=== PATIENT | male | born 1985 | race Hispanic/Latino ===

== ENCOUNTER 2017-06-05 12:50 | Outpatient (CLI) | payer BC ==
--- NOTE | 2017-06-06 08:57 | Magnetic Resonance Report ---
MR LOWER EXTREMITY JOINT LEFT WITHOUT CONTRAST HISTORY: Pain in right knee. TECHNIQUE: Multisequence, multiplanar MRI without IV gadolinium. COMPARISON: None at this facility. FINDINGS: There is severe, diffuse soft tissue swelling and edema. A large joint effusion is identified. No popliteal cyst. A transverse, mildly comminuted fracture is identified through the middle third of the patella with displacement measuring up to 2.0 cm on the coronal images. There is also an area of indistinct bone marrow edema in the posterior tibial plateau measuring 2.9 x 2.2 x 2.0 cm. This is at the insertion site of the PCL. There is suggestion of very subtle nondisplaced fracture lines in the posterior tibial plateau as well. This could represent a nondisplaced avulsion injury. Please correlate with the images. The PCL remains attached but appears slightly thickened with increased signal. A PCL sprain or partial tear could be considered. The ACL, MCL and LCL complex are intact and unremarkable. The menisci are within normal limits. No significant degeneration or tear. Intra-articular cartilage appears intact. IMPRESSION: Patellar fracture. See above. Indistinct bone marrow edema with suggestion of nondisplaced fracture lines in the posterior tibial plateau at the insertion site of the PCL. This may represent an avulsion injury. PCL strain or partial tear is suspected. Large joint effusion. Diffuse soft tissue swelling.
== END 2017-06-05 12:51 | disposition home or self-care (01) ==
LOC: MRI 12:50
PROVIDERS: ATTEND Orthopaedic Surgery
DX: S82.012A Displaced osteochondral fracture of left patella, initial encounter for closed fracture (principal); X58.XXXA Exposure to other specified factors, initial encounter; Y93.89 Activity, other specified; Y92.89 Other specified places as the place of occurrence of the external cause; Y99.8 Other external cause status
CPT/HCPCS: 73721

== ENCOUNTER 2017-06-06 06:17 | Observation (INO) | payer BC ==
[2017-06-05 14:51] LABS: Bilirubin,Urine NEG (Negative); Blood,Urine SM (Negative); Color,Urine Yellow (Yellow); Mucus,Urine 3+ /HPF; Protein,Urine <15 mg/dL mg/dL (Negative)
[2017-06-05 14:52] LABS: Basophils # (Auto) 0.1 K/mm3 (0.0-0.1); Basophils % (Auto) 0.9 % (0.0-1.8); Eosinophils # (Auto) 0.2 K/mm3 (0.0-0.4); Eosinophils % (Auto) 1.2 % (0.0-4.3); Hematocrit 41.5 % (35.5-45.6); Hemoglobin 13.9 gm/dl (11.8-15.2); Lymphocytes # (Auto) 3.8 K/mm3 (1.2-5.4); Lymphocytes % (Auto) 26.4 % (13.4-35.0); Mean Corpuscular HGB Conc 34 % (32-34); Mean Corpuscular Hemoglobin 31 pg (28-32); Mean Corpuscular Volume 94 fl (84-94); Monocytes # (Auto) 0.9 K/mm3 (0.0-0.8); Monocytes % (Auto) 6.5 % (0.0-7.3); Platelet Count 312 K/mm3 (140-440); Red Blood Count 4.43 M/mm3 (3.65-5.03); Red Cell Distribution Width 13.5 % (13.2-15.2)
[2017-06-05 15:11] LABS: BUN/Creatinine Ratio 19; Blood Urea Nitrogen 15 mg/dL (9-20); Calcium 9.2 mg/dL (8.4-10.2); Hemolysis Index 7
[2017-06-05 15:16] LABS: Benzodiazepines Screen,Urine PRESUMPTIVE NEGATIVE; Cannabinoid Screen,Urine PRESUMPTIVE NEGATIVE; Cocaine Screen,Urine PRESUMPTIVE NEGATIVE; Opiate Screen,Urine PRESUMPTIVE NEGATIVE
[2017-06-05 15:16] LABS: INR 0.87 (0.87-1.13)
[2017-06-05 15:17] LABS: Partial Thromboplastin Time 35.4 Sec. (24.2-36.6)
[2017-06-05 15:29] LABS: Amphetamine Screen,Urine PRESUMPTIVE POSITIVE; Methadone Screen,Urine PRESUMPTIVE POSITIVE
--- NOTE | 2017-06-05 15:38 | Anesthesia Consultation ---
Anesthesia Consult and Med Hx Date of service: 06/05/17 - Airway Anesthetic Teeth Evaluation: Chipped ROM Head & Neck: Adequate Mental/Hyoid Distance: Adequate Mallampati Class: Class I Intubation Access Assessment: Good - Pulmonary Exam CTA: Yes - Cardiac Exam Cardiac Exam: RRR - Pre-Operative Health Status ASA Pre-Surgery Classification: ASA2 Proposed Anesthetic Plan: General, MAC - Pulmonary Hx Smoking: Yes (1 PPD X 10 YRS) Hx Sleep Apnea: No (RICARDO PRE SCREEN LOW RISK.) - Cardiovascular System Hx Hypertension: No Hx Angina: No - Central Nervous System Hx Back Pain: Yes (DDD - was on [place] - converted to Methadone 30mg daily) - Gastrointestinal Hx Gastroesophageal Reflux Disease: No - Endocrine Hx Renal Disease: No Hx Liver Disease: No - Other Systems Hx Alcohol Use: Yes (6 every other weekend) Hx Substance Use: Yes (LORTAB ABUSE-ON METHADONE NOW) Hx Cancer: No Hx Obesity: No - Additional Comments Anesthesia Medical History Comments: Patient has concern about withdrawl. I have discussed the possibility of regional anesthesia.
[~2017-06-06 06:17] MED LIST: ANCEF/STERILE WATER 2 GM/20 ML IV NR; DECADRON IV SCH; MARCAINE 0.25% INFILTRATI ONE; MARCAINE 0.5% INFILTRATI NR; NACL 0.9% 1000 ML 1,000 ML IV SCH; NACL INFILTRATI ONE; NACL P/F VIAL (10 ML) INFILTRATI SCH; NEURONTIN PO NR; SUBLIMAZE IV SCH; TORADOL IV ONE; XYLOCAINE 1% 20 mL INFILTRATI NR; ZOFRAN IV NR
[2017-06-06] MEDS ORDERED: NACL BACTERIOSTATIC INFILTRATI ONE (06:40)
--- NOTE | 2017-06-06 07:16 | Anesthesia Day of Surgery ---
Anesthesia Day of Surgery - Day of Surgery Patient Examined: Yes Patient H&P Reviewed: Yes Patient is NPO: Yes
[2017-06-06] MEDS ORDERED: DECADRON ONE (07:21)
[2017-06-06] MEDS ORDERED: ZOFRAN ONE (07:21)
[2017-06-06] MEDS ORDERED: XYLOCAINE CARDIAC IV ONE (07:21)
[2017-06-06] MEDS ORDERED: VERSED ONE ×2 (07:22→07:48)
[2017-06-06] MEDS ORDERED: SUBLIMAZE ONE (07:22)
[2017-06-06] MEDS ORDERED: DIPRIVAN 10 MG/ML IV ONE (07:22)
[2017-06-06 07:26] LABS: Basophils # (Auto) 0.1 K/mm3 (0.0-0.1); Basophils % (Auto) 0.7 % (0.0-1.8); Eosinophils # (Auto) 0.1 K/mm3 (0.0-0.4); Eosinophils % (Auto) 1.3 % (0.0-4.3); Hematocrit 40.2 % (35.5-45.6); Hemoglobin 13.9 gm/dl (11.8-15.2); Lymphocytes # (Auto) 2.9 K/mm3 (1.2-5.4); Lymphocytes % (Auto) 32.1 % (13.4-35.0); Mean Corpuscular HGB Conc 35 % (32-34); Mean Corpuscular Hemoglobin 32 pg (28-32); Mean Corpuscular Volume 91 fl (84-94); Monocytes # (Auto) 0.8 K/mm3 (0.0-0.8); Monocytes % (Auto) 8.3 % (0.0-7.3); Platelet Count 236 K/mm3 (140-440); Red Blood Count 4.41 M/mm3 (3.65-5.03); Red Cell Distribution Width 13.5 % (13.2-15.2)
[2017-06-06] MEDS ORDERED: MARCAINE 0.5% 30 ML INFILTRATI ONE (07:39)
[2017-06-06] MEDS ORDERED: BACITRACIN ONE (07:48)
[2017-06-06] MEDS ORDERED: POLYMYXIN B SULFATE IV ONE ×2 (07:48→10:14)
[2017-06-06] MEDS ORDERED: TORADOL ONE ×2 (07:56→10:21)
[2017-06-06] MEDS ORDERED: NACL ONE (07:56)
[2017-06-06] MEDS ORDERED: MARCAINE 0.25% INFILTRATI ONE ×2 (07:57→10:34)
[2017-06-06] MEDS ORDERED: MORPHINE ONE (07:57)
[2017-06-06] MEDS ORDERED: CLORPACTIN WCS-90 IR ONE (07:58)
[2017-06-06] MEDS ORDERED: VERSED IV NR (08:00)
[2017-06-06] MEDS ORDERED: VANCOMYCIN VIAL ONE (08:47)
[2017-06-06] MEDS ORDERED: KETALAR ONE (08:48)
[2017-06-06] MEDS ORDERED: NACL 0.9% 250ML 250 ML ONE (08:50)
[2017-06-06] MEDS ORDERED: BACITRACIN IR ONE (10:14)
[2017-06-06] MEDS ORDERED: NACL INFILTRATI ONE (10:34)
[2017-06-06] MEDS ORDERED: TORADOL IV ONE (10:34)
[2017-06-06] MEDS ORDERED: PHENERGAN PR PRN (10:45)
[2017-06-06] MEDS ORDERED: ZOFRAN IV PRN (10:45)
[2017-06-06] MEDS ORDERED: DILAUDID ONE (10:47)
[2017-06-06] MEDS ORDERED: ROBINUL ONE (10:49)
[2017-06-06] MEDS ORDERED: NON-FORMULARY (Ranitidine Hcl [Zantac 150 Mg Tab] 150 MG) PO PRN (10:55)
[2017-06-06] MEDS ORDERED: ULTRAM PO PRN (10:55)
[2017-06-06] MEDS ORDERED: ANCEF/NS 1 GM/50 ML 1 GM/50 ML BAG IV SCH (11:00)
[2017-06-06] MEDS ORDERED: SODIUM CHLORIDE FLUSH SYRINGE 10 ML IV NR (11:00)
[2017-06-06] MEDS ORDERED: SODIUM CHLORIDE FLUSH SYRINGE 10 ML IV SCH (11:00)
[2017-06-06] MEDS ORDERED: BREVIBLOC IV ONE (11:12)
[2017-06-06] MEDS ORDERED: PEPCID PO PRN (11:40)
[2017-06-06] MEDS: NORCO 10/325 PO PRN ×3 (12:00→21:37)
[2017-06-06] MEDS: DILAUDID IV PRN ×3 (12:05→12:20)
[2017-06-06] MEDS: DOLOPHINE PO SCH (12:27)
--- NOTE | 2017-06-06 13:30 | Post Anesthesia Evaluation ---
- Post Anesthesia Evaluation Patient Participated: Yes Airway Patent: Yes Stable Respiratory Function: Yes Nausea/Vomiting: No Temp > 96.8F: Yes Pain Manageable: Yes Adequeate Hydration: Yes Anesthesia Complications: No Patient on Ventilator: No
[2017-06-06] MEDS ORDERED: ceFAZolin 2 GM in NACL 0.9% 100 ML IV SCH (14:00)
[2017-06-06] MEDS: ROBAXIN PO PRN (15:45)
[2017-06-06] MEDS: ceFAZolin 2 GM in NACL 0.9% 20 ML IV SCH (16:08)
[2017-06-06] MEDS ORDERED: COLACE PO SCH (22:00)
--- NOTE | 2017-06-06 23:52 | Consultation ---
History of Present Illness - Reason for Consult Consult date: 06/06/17 Medical management Requesting physician: JESSIE ALCALA - History of Present Illness S/p L patellar fracture after stepping accidentally into a hole.Had ORIF -post p doing well. 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) Past Surgical History: Other (Patella ORIF) Medications and Allergies Allergies Allergy/AdvReac Type Severity Reaction Status Date / Time morphine Allergy Vomiting , Verified 06/05/17 14:48 RASH Home Medications Medication Instructions Recorded Confirmed Last Taken Type Ibuprofen [Motrin] 800 mg PO Q8HR PRN 06/05/17 06/06/17 06/04/17 History Methadone [Dolophine] 30 mg PO DAILY 06/05/17 06/06/17 06/05/17 History Ranitidine HCl [Zantac 150 MG TAB] 150 mg PO PRN PRN 06/05/17 06/06/17 06/03/17 History methOCARBAMOL [Robaxin TAB] 500 mg PO Q6H PRN 06/05/17 06/06/17 06/04/17 History traMADol [Ultram] 50 mg PO Q6HR PRN 06/05/17 06/06/17 06/06/17 05:30 History Active Meds: Active Medications Acetaminophen/Hydrocodone Bitart ([place] 10/325) 1 each PO Q4H PRN PRN Reason: Pain, Moderate (4-6) Last Admin: 06/06/17 21:37 Dose: 1 each Docusate Sodium (Colace) 100 mg PO BID [facility] Last Admin: 06/06/17 21:37 Dose: 100 mg Enoxaparin Sodium (Lovenox) 40 mg SUB-Q QDAY@2200 [facility] Stop: 06/21/17 21:59 Famotidine (Pepcid) 20 mg PO QDAY PRN PRN Reason: INDIGESTION Hydromorphone HCl (Dilaudid) 0.25 mg IV Q10MIN PRN PRN Reason: Pain, Moderate (4-6) Last Admin: 06/06/17 12:20 Dose: 0.25 mg Sodium Chloride (Nacl 0.9% 1000 Ml) 1,000 mls @ 75 mls/hr IV DIRECT DIONNA Last Infusion: 02/15/18 23:40 Dose: Infused Cefazolin Sodium 2 gm/ Sodium (Chloride) 20 mls @ 20 mls/10 min IV Q8H DIONNA Stop: 06/07/17 01:09 Last Admin: 06/06/17 16:08 Dose: 20 mls/10 min Methadone HCl (Dolophine) 30 mg PO DAILY DIONNA Last Admin: 06/06/17 12:27 Dose: 30 mg Methocarbamol (Robaxin) 500 mg PO Q6H PRN PRN Reason: Pain Last Admin: 06/06/17 15:45 Dose: 500 mg Midazolam HCl (Versed) 2 mg IV PREOP NR Stop: 06/06/17 23:59 Last Admin: 06/06/17 07:45 Dose: 2 mg Ondansetron HCl (Zofran) 4 mg IV Q8H PRN PRN Reason: Nausea And Vomiting Last Admin: 06/06/17 21:39 Dose: 4 mg Promethazine HCl (Phenergan) 25 mg DE Q6H PRN PRN Reason: Nausea And Vomiting Sodium Chloride (Nacl P/F Vial (10 Ml)) 1 ml INFILTRATI PREOP DIONNA Sodium Chloride (Sodium Chloride Flush Syringe 10 Ml) 10 ml IV PRN NR Stop: 06/06/17 23:59 Sodium Chloride (Sodium Chloride Flush Syringe 10 Ml) 10 ml IV PRN DIONNA Tramadol HCl (Ultram) 50 mg PO Q6HR PRN PRN Reason: Pain Review of Systems All systems: negative Exam - Constitutional Vitals: Temp Pulse Resp BP Pulse Ox 98.2 F 98 H 20 108/62 97 06/06/17 19:50 06/06/17 19:50 06/06/17 19:55 06/06/17 19:50 06/06/17 19:50 General appearance: Present: no acute distress, well-nourished - EENT Eyes: Present: PERRL ENT: hearing intact, clear oral mucosa - Neck Neck: Present: supple, normal ROM - Respiratory Respiratory effort: normal Respiratory: bilateral: CTA - Cardiovascular Heart Sounds: Present: S1 & S2. Absent: rub, click - Extremities Extremities: pulses symmetrical, No edema Peripheral Pulses: within normal limits - Abdominal General gastrointestinal: Present: soft, non-tender, non-distended, normal bowel sounds Male genitourinary: Present: normal - Integumentary Integumentary: Present: clear, warm, dry - Musculoskeletal Musculoskeletal: gait normal, strength equal bilaterally - Psychiatric Psychiatric: appropriate mood/affect, intact judgment & insight - Neurologic Neurologic: CNII-XII intact, moves all extremities Results - Labs CBC & Chem 7: 06/06/17 07:00 06/05/17 14:30 Labs: Abnormal lab results 06/06/17 Range/Units 07:00 MCHC 35 H (32-34) % [place] % (Auto) 8.3 H (0.0-7.3) % Assessment and Plan - Patient Problems (1) Left patella fracture Current Visit: Yes Status: Acute Qualifiers: Encounter type: initial encounter Fracture type: closed Fracture morphology: unspecified fracture morphology Plan to address problem: S/p ORIF.Postop doing well (2) Hydrocodone use disorder, mild, in sustained remission, in controlled environment, abuse Current Visit: Yes Status: Chronic Plan to address problem: On Methadone CIWA protocol if necessary (3) DVT prophylaxis Current Visit: Yes Status: Acute Plan to address problem: on Lovenox 30
--- NOTE | 2017-06-06 23:59 | XRay Report ---
FINAL REPORT EXAM: XR KNEE 1-2V LT HISTORY: ORIF LT PATELLOR FRACTURE TECHNIQUE: AP and lateral views of the left knee were submitted. There are no previous studies available for comparison. FINDINGS: The patient is status post ORIF for patellar fracture with pins and cerclage wires in place. The fracture fragments are properly Ree align without residual displacement. The soft tissues are unremarkable. IMPRESSION: Status post ORIF for patellar fracture. Satisfactory postoperative alignment.
[2017-06-07] MEDS: NORCO 10/325 PO PRN ×2 (03:03→10:03)
[2017-06-07] MEDS: ceFAZolin 2 GM in NACL 0.9% 20 ML IV SCH (03:05)
[2017-06-07] MEDS: DOLOPHINE PO SCH (10:02)
[2017-06-07] MEDS: ROBAXIN PO PRN (10:28)
--- NOTE | 2017-06-07 11:14 | Progress Note ---
Subjective Date of service: 06/07/17 Interval history: pod1, patient having mod to severe pain, dressing was removed, sven wrap removed. caslf soft NT dRESSING DRY Thigh soft. Resolving bruise around the knee from preop time, no redness, no wound drainage Sven wrap loosely reapplied and knee immobiliser applied. Ice pacs recommended, leg elevation, pain management consult - Anaesthesia and Medicine consult Given his history of opiod abuse and being on methadone, he has poor pain tolerance and may be neeeding higher and stronger pain meds for pain control Patient aware of the possibility of chroni pain , RSD. Ankle movts encouranged. lyrica added. Follow Pain management/ anaesthesisa AND MEDICINE RECOMMENDATIONS. Patient to be kept in hopsital for pain control. Objective Vital signs: Vital Signs - 12hr 06/07/17 06/07/17 06/07/17 00:25 00:26 04:42 Temperature 97.8 F 97.8 F Pulse Rate 74 71 64 Respiratory 17 18 Rate Blood Pressure 109/54 109/54 105/61 O2 Sat by Pulse 97 97 97 Oximetry 06/07/17 06/07/17 07:41 09:41 Temperature 98.4 F Pulse Rate 67 Respiratory 18 Rate Blood Pressure 122/71 O2 Sat by Pulse 100 95 Oximetry - Labs CBC & BMP: 06/06/17 07:00 06/05/17 14:30
[2017-06-07] MEDS ORDERED: ROXICODONE PO PRN (13:31)
--- NOTE | 2017-06-07 13:44 | Progress Note ---
Assessment and Plan Patient seen and evaluated at bedside. He is complaining of uncontrolled pain. score 10/10. "feels like his leg is on fire". He said the nerve block performed yesterday helped his pain but now the block has faded. He is on methadone and has history of lortab abuse. I offered to repeat the nerve block. He refused. I offer to start some adjuvants such as toradol. he said that wont help. he requested I give him IV pain medication.diluadid or morphine He said if not given IV opioids, he will sign out and take "as much pain medication at home as I need". I advised him to take meds only as scheduled. I stressed about the concern for overdose and respiratory depression. Spoke with Dr. Whitmore. Spoke with nurse Simons at [facility]( his methadone clinic). Ronak advised to d/c tramdol( ordered by Dr. Whitmore) as there is risk for withdrawal. Current meds: Methadone 40 mg daily Robaxin 500 mg po q6hr prn Lyrica 75 mg bid Toradol 30 mg IV q8hr- 3 doses po Tylenol 650 mg q8hr po oxycodne 5 mg q4hr prn Objective - Constitutional Vitals: Vital Signs - 12hr 06/07/17 06/07/17 06/07/17 04:42 07:41 09:41 Temperature 97.8 F 98.4 F Pulse Rate 64 67 Respiratory 18 18 Rate Blood Pressure 105/61 122/71 O2 Sat by Pulse 97 100 95 Oximetry - Labs CBC & Chem 7: 06/06/17 07:00 06/05/17 14:30
[2017-06-07] MEDS: TORADOL IV SCH ×2 (14:28→14:50)
[2017-06-07] MEDS ORDERED: TYLENOL PO SCH (14:30)
[2017-06-07 15:56] VITALS: BP 120/73
--- NOTE | 2017-06-07 17:53 | Discharge Summary ---
Providers - Providers Date of Admission: 06/06/17 10:45 Date of discharge: 06/07/17 Attending physician: JESSIE ALCALA 06/06/17 10:45 Consult to Case Management [CONS] Routine Services Needed at Discharge: Home Health Services Political Worker DME Equipment Physical Therapy Notified:: LAYOUT INSPECTOR Additional Physician Instructions: patient will be NWB with crutches and knee immobilizer at all times. Consult to Physician [CONS] Routine Consulting Provider: SCOTTY FISHER Reason For Exam: postop Place consult to:: DR. FISHER Notified:: DR. FISHER Phone number called:: [phone] Was contact made?: Yes If yes, spoke with:: DR. FISHER Time called:: 16:42 Comment:: COMPLETED 06/06/17 10:53 Physical Therapy Evaluation and Treat [CONS] Routine Comment: Reason For Exam: postop patella fracture 06/06/17 10:56 Consult to Anesthesiology [CONS] Routine Consulting Provider: [facility] Reason For Exam: postop pain management Primary care physician: ANGELIA FULLER Hospitalization Hospital course: S/p L patellar Fx ORIF Doing well. Disposition: - TO HOME OR SELFCARE - Discharge Diagnoses (1) Left patella fracture Status: Acute Qualifiers: Encounter type: initial encounter Fracture type: closed Fracture morphology: unspecified fracture morphology (2) Hydrocodone use disorder, mild, in sustained remission, in controlled environment, abuse Status: Chronic (3) DVT prophylaxis Status: Acute Core Measure Documentation - Palliative Care Palliative Care/ Comfort Measures: Not Applicable - Core Measures Any of the following diagnoses?: none Exam - Constitutional Vitals: Temp Pulse Resp BP Pulse Ox 98.3 F 82 18 120/73 95 06/07/17 15:40 06/07/17 15:40 06/07/17 15:40 06/07/17 15:40 06/07/17 15:40 General appearance: Present: no acute distress, well-nourished - EENT Eyes: Present: PERRL ENT: hearing intact, clear oral mucosa - Neck Neck: Present: supple, normal ROM - Respiratory Respiratory effort: normal Respiratory: bilateral: CTA - Cardiovascular Heart rate: 80 Rhythm: regular Heart Sounds: Present: S1 & S2. Absent: rub, click - Extremities Extremities: pulses symmetrical, No edema Peripheral Pulses: within normal limits - Abdominal General gastrointestinal: Present: soft, non-tender, non-distended, normal bowel sounds Male genitourinary: Present: normal - Integumentary Integumentary: Present: clear, warm, dry - Musculoskeletal Musculoskeletal: gait normal, strength equal bilaterally - Psychiatric Psychiatric: appropriate mood/affect, intact judgment & insight - Neurologic Neurologic: CNII-XII intact, moves all extremities - Allied Health Allied health notes reviewed: nursing, case management Plan Activity: no restrictions Diet: regular Follow up with: ANGELIA FULLER MD [Primary Care Provider] - 7 Days
[2017-06-07] MEDS ORDERED: LYRICA PO SCH (22:00)
[2017-06-07] MEDS ORDERED: LOVENOX SUB-Q SCH (22:00)
--- NOTE | 2017-06-19 22:44 | Operative Report ---
PREOPERATIVE DIAGNOSIS: Fracture of the patella closed in the left knee with minimal comminution. POSTOPERATIVE DIAGNOSES: 1. Displaced fracture of patella, left knee, with minimal comminution. 2. Hematoma, left knee joint. SURGEON: Otto Whitmore M.D. AUDIT PRACTICE INTERN: Zaki Sierra, operative tech. BRIEF HISTORY: The patient presented in the office with a painful swollen knee. He was seen by the Emergency Room doctor and was referred to one of the doctors and the surgeon who, as per the patient, did not do his surgery. He was seen by me and he had displaced patella fracture, which needed surgical intervention. Risks and benefits discussed, informed consent obtained. He was here, brought to the hospital for the procedure below. PROCEDURES PERFORMED: Left knee open reduction and internal fixation left patella fracture with tension band wiring technique. COMPLICATIONS: None. BLOOD LOSS: Minimal. DETAILS OF THE OPERATIVE REPORT: The patient was taken to the operating room. After smooth general endotracheal anesthesia, all the bony prominences were carefully padded, placed supine on the operating table. Thigh tourniquet placed. Left lower extremity prepped and draped in sterile fashion. The patient had a bruise significant around the knee area, in the lower thigh and upper leg area. Leg elevated, tourniquet inflated to 300 mmHg. Longitudinal incision made over anterior aspect of the knee, exposing the extensor mechanism. Significant hematoma was encountered and was suctioned out. There was a hematoma, which has been present for a long time, probably more than 7-10 days as per his history. He has small fracture, identified. Hematoma was evacuated. Fracture site was cleared of all the hematoma and the periosteum, which was coming over the fracture site. There was a tear of the retinacular tissue in the medial lateral side, complete tear which was identified as well. Two K wires were placed that ____ the fracture after the fracture site was reduced. Fractures were reduced with the patella reduction clamp and larger Mtz clamp. Once the fracture reduced, a K-wire was passed through the fracture site. The reduction was checked under C-arm, found to be excellent and we had smooth transition on the articular side by palpating, putting a finger through the retinacular tissue, which was torn. Once this was done, we checked the placement of the wire. The placement of wires was about 5 mm below the anterior surface of the patella. The cerclage wires were then placed ____ through an Angiocath. A 16 gauge Angiocath through the quadriceps mechanism close to the superior surface of the patella and inferior pole of the patella underneath the K wires. We advanced a cerclage wire and looped the cerclage wire around over the patella, crisscross the wires in a [id number] fashion and then tensioning was performed using 2 looped tensioning technique. A securing of the cerclage wire was done, free ends were cut and bend and buried. The K-wires were trimmed, rotated and buried into the soft bone over the wires. The lower end of the wires was mildly bend to prevent its proximal migration. Once this was done and we had satisfactory reduction, the thorough washing was performed. The retinacular tissues were repaired with Ethibond and Vicryl sutures using [id number] technique. The subcutaneous tissue was closed with 0 Vicryl and 2-0 Vicryl interrupted sutures. Skin was closed with Monocryl. Aquacel dressing done. Sven wrap applied. Knee immobilizer applied. The patient tolerated the procedure well, shifted to recovery room in stable condition. Sponge and needle count was correct. JOB# [id number] DAVID/MILTON
== END 2017-06-07 20:00 | disposition home or self-care (01) ==
LOC: OR 06:17 → 3B-SURG 10:45
PROVIDERS: ADMIT Orthopaedic Surgery; ATTEND Orthopaedic Surgery
DX: S82.042A Displaced comminuted fracture of left patella, initial encounter for closed fracture (principal); F11.11 Opioid abuse, in remission; M51.36 Other intervertebral disc degeneration, lumbar region; W22.8XXA Striking against or struck by other objects, initial encounter; Y93.89 Activity, other specified; Y92.89 Other specified places as the place of occurrence of the external cause; Y99.8 Other external cause status; Z87.891 Personal history of nicotine dependence
CPT/HCPCS: 27524; 36415; 64450; 73560; 80048; 80307; 81001; 85025; 85610; 85730; 86850; 86900; 86901; 93005; 93010; 96374; 96375; 96376; 97161; G0378; J0690; J1100; J1170; J1885; J2001; J2250; J2405; J2704; J3010; J3370; J7030; J7050; J2270

== ENCOUNTER 2017-09-26 06:39 | Observation (INO) | payer BC ==
[2017-09-25 11:35] LABS: Basophils # (Auto) 0.1 K/mm3 (0.0-0.1); Eosinophils # (Auto) 0.1 K/mm3 (0.0-0.4); Eosinophils % (Auto) 1.6 % (0.0-4.3); Hematocrit 43.5 % (35.5-45.6); Lymphocytes # (Auto) 2.6 K/mm3 (1.2-5.4); Lymphocytes % (Auto) 34.1 % (13.4-35.0); Mean Corpuscular HGB Conc 35 % (32-34); Mean Corpuscular Hemoglobin 32 pg (28-32); Mean Corpuscular Volume 92 fl (84-94); Monocytes # (Auto) 0.5 K/mm3 (0.0-0.8); Monocytes % (Auto) 6.6 % (0.0-7.3); Platelet Count 269 K/mm3 (140-440); Red Blood Count 4.75 M/mm3 (3.65-5.03); Red Cell Distribution Width 13.7 % (13.2-15.2)
[2017-09-25 11:37] LABS: Bilirubin,Urine NEG (Negative); Blood,Urine SM (Negative); Color,Urine Yellow (Yellow); Protein,Urine <15 mg/dL mg/dL (Negative)
[2017-09-25 11:38] LABS: Mucus,Urine FEW /HPF; Urobilinogen,Urine < 2.0 mg/dL (<2.0)
[2017-09-25 11:47] LABS: INR 0.87 (0.87-1.13)
[2017-09-25 12:00] LABS: Alanine Aminotransferase 22 units/L (7-56); Albumin 4.1 g/dL (3.9-5); BUN/Creatinine Ratio 16; Blood Urea Nitrogen 11 mg/dL (9-20); Calcium 9.1 mg/dL (8.4-10.2); Hemolysis Index 14
[2017-09-25 12:43] LABS: Amphetamine Screen,Urine PRESUMPTIVE NEGATIVE; Benzodiazepines Screen,Urine PRESUMPTIVE NEGATIVE; Cannabinoid Screen,Urine PRESUMPTIVE NEGATIVE; Cocaine Screen,Urine PRESUMPTIVE NEGATIVE
--- NOTE | 2017-09-25 12:47 | Anesthesia Consultation ---
Anesthesia Consult and Med Hx Date of service: 09/25/17 - Airway Anesthetic Teeth Evaluation: Poor ROM Head & Neck: Adequate Mental/Hyoid Distance: Adequate Mallampati Class: Class I Intubation Access Assessment: Good - Pulmonary Exam CTA: Yes - Cardiac Exam Cardiac Exam: RRR - Pre-Operative Health Status ASA Pre-Surgery Classification: ASA3 Proposed Anesthetic Plan: General Nerve Block: Femoral (Will use precedex, and Ketamine, intraop, pt has hx of drug abuse, on methadone) - Pulmonary Hx Smoking: Yes (1 PPD X 10 YRS) Hx Pneumonia: No Hx Sleep Apnea: No (RICARDO PRE SCREEN LOW RISK) - Cardiovascular System Hx Hypertension: No - Central Nervous System Hx Back Pain: Yes (CHRONIC- DAILY PAIN MEDS) - Other Systems Hx Alcohol Use: Yes Hx Substance Use: Yes (ADDICTION TO LORTABS-CONVERTED TO METHADONE) Hx Cancer: No
[2017-09-25 13:02] LABS: Methadone Screen,Urine PRESUMPTIVE POSITIVE; Opiate Screen,Urine PRESUMPTIVE POSITIVE
[~2017-09-26 06:39] MED LIST changes: -DECADRON IV SCH; -MARCAINE 0.5% INFILTRATI NR; -NACL 0.9% 1000 ML 1,000 ML IV SCH; -NACL INFILTRATI ONE; -NACL P/F VIAL (10 ML) INFILTRATI SCH; -NEURONTIN PO NR; -SUBLIMAZE IV SCH; -TORADOL IV ONE; +VERSED IV NR; -XYLOCAINE 1% 20 mL INFILTRATI NR; -ZOFRAN IV NR
[2017-09-26] MEDS: LACTATED RINGERS 1,000 ML IV SCH ×3 (07:15→21:42)
[2017-09-26] MEDS ORDERED: SUBLIMAZE ONE (07:45)
[2017-09-26] MEDS ORDERED: DIPRIVAN 10 MG/ML IV ONE ×2 (07:45→09:13)
[2017-09-26] MEDS ORDERED: NACL 0.9% 100 ML ONE ×2 (07:50→08:10)
[2017-09-26] MEDS ORDERED: DEXMEDETOMIDINE IV ONE (07:51)
[2017-09-26] MEDS ORDERED: DECADRON ONE (07:53)
[2017-09-26] MEDS ORDERED: MARCAINE 0.5% 30 ML INFILTRATI ONE (07:53)
[2017-09-26] MEDS ORDERED: CLONIDINE 1,000 MCG/10 ML VIAL EP ONE (07:53)
[2017-09-26] MEDS ORDERED: KETALAR ONE ×3 (07:59→12:48)
[2017-09-26] MEDS ORDERED: TORADOL ONE ×2 (08:09→12:46)
[2017-09-26] MEDS ORDERED: POLYMYXIN B SULFATE IV ONE ×2 (08:10→09:22)
[2017-09-26] MEDS ORDERED: BACITRACIN ONE (08:10)
[2017-09-26] MEDS ORDERED: MARCAINE 0.25% INFILTRATI ONE ×2 (08:10→10:53)
[2017-09-26] MEDS ORDERED: ZOFRAN ONE (08:30)
[2017-09-26] MEDS ORDERED: NEO SYNEPHRINE/NS Syringe(OR USE) IV ONE (08:38)
[2017-09-26] MEDS ORDERED: ePHEDrine 50 MG/5 ML-0.9% NACL IV ONE (08:38)
[2017-09-26] MEDS ORDERED: BACITRACIN IR ONE (09:22)
[2017-09-26] MEDS ORDERED: CLORPACTIN WCS-90 IR ONE (09:49)
[2017-09-26] MEDS ORDERED: [UNRECOGNIZED DRUG - OTHER] IRRIGATION ONE (10:27)
[2017-09-26] MEDS ORDERED: DILAUDID ONE ×2 (10:30→11:11)
[2017-09-26] MEDS ORDERED: MILK OF MAGNESIA PO PRN (10:54)
[2017-09-26] MEDS ORDERED: ZOFRAN IV PRN ×2 (10:54→12:19)
[2017-09-26] MEDS ORDERED: PHENERGAN PR PRN (10:54)
[2017-09-26] MEDS ORDERED: ACETAMINOPHEN PO PRN (10:58)
[2017-09-26] MEDS ORDERED: OXYCODONE HCL PO PRN (10:58)
[2017-09-26] MEDS ORDERED: NON-FORMULARY (Ranitidine Hcl [Zantac 150 Mg Tab] 150 MG) PO PRN (10:58)
[2017-09-26] MEDS ORDERED: SODIUM CHLORIDE FLUSH SYRINGE 10 ML IV NR (11:00)
[2017-09-26] MEDS ORDERED: NORCO 10/325 PO PRN (11:02)
--- NOTE | 2017-09-26 11:45 | Operative Report ---
PREOPERATIVE DIAGNOSIS: Displaced fracture, left patella with hardware in situ POSTOPERATIVE DIAGNOSIS: Displaced fracture, left patella with hardware in situ PROCEDURES PERFORMED: 1. Open reduction and internal fixation of left patella fracture with cannulated cancellous screws x 2 with tension band wire. 2. Repair of the retinacular tissue. 3. Removal of the hardware K wires and previous wires in situ. COMPLICATIONS: None. BLOOD LOSS: Minimal. SURGEON: Otto Whitmore MD. CLERK TRAVEL RESERVATIONS: Zaki Sierra CSA. BRIEF HISTORY: The patient had a patella fracture in the past, open reduction and internal fixation was fixed with tension band wiring and is being 3-1/2-month-old and had slipped down on the downhill and injured his left lower extremity again and came back with a displaced refracture of the patella. He opted for surgical intervention. Risks, benefit discussed, informed consent obtained, brought to the hospital for the above procedure. DETAILS OF THE OPERATIVE REPORT: The patient was taken to the operating room. Smooth general anesthesia, all the bony prominences were carefully padded, placed supine on the operating table. Thigh tourniquet was placed. Left knee and left lower extremity prepped and draped in sterile fashion. The patient was given 2 gram Ancef half an hour before the procedure. Midline incision was made in the same line, same incision was used. Previous scar was used and extended 1 cm proximally and distally to find a good tissue plane. Fracture site was exposed. There was significant amount of hematoma was encountered and it was evacuated. There was some tear and rupture of the Ethibond sutures and retinacular tissues again and sutures were removed. The fracture was ; however, the wires were still in place and holding the two bone fragment. There was separation of the bone fragment. There were two big pieces of superior and inferior patella. The wires and the hardware were removed. The fracture site exposed, cleaned and then soft tissues on the edges of the fracture site were cleaned again. The retinacular tissues were exposed to see the extent of the tear. The fracture was then reduced with pointed reduction clamp on medial lateral side or reduction was checked on the C-arm, found to be acceptable. We then passed a guidewire from inferior to superior holding the fracture site. It was checked and the bone stock was enough to put 2 cannulated screw. We measured the size of the screw and inserted a cannulated cancellous screw 4-0, two screws holding the tube fracture pieces together. The length of screw on the medial side was 38 and the lateral side was 40 mm. A good fixation was achieved. Good compression of the fracture site was achieved. The screw did not protrude through the superior surface, which very well fixed and abutting the bone. The fracture site was reduced and confirmed and placement of the screw was confirmed to be very well acceptable on the AP and lateral view of the knee. Following this, the #20 stem cerclage wire was passed through the screw bringing it over the patella passing through the other screw and tying a loop and not over the patella, good fixation tension band technique was done and good loop was tightened up and good tension band technique was performed. Good fixation was achieved. The fracture was compressed and very well approximated. The retinacular tissue, which torn was again repaired with Ethibond sutures and 0 Vicryl sutures. Subcutaneous tissue was closed with 0 and 2-0 Vicryl interrupted sutures and the patient had some soft tissue defect on anterior aspect of the knee in order for better wound approximation couple of 2-3 nylon stitches in horizontal mattress were done in the skin and subcutaneous tissue for better wound approximation and wound was then closed with 0 and 3-0 Monocryl suture. Tourniquet was deflated during the after the procedure and before the wound closure. The dressing was done with Aquacel dressing and Sven wrap applied and knee immobilizer applied. The patient tolerated procedure well, shifted to recovery room in stable condition. Sponge and needle count was correct. JOB# [id number] DAVID/MILTON
[2017-09-26] MEDS: TORADOL IV SCH ×3 (11:55→23:22)
[2017-09-26] MEDS ORDERED: DILAUDID IV PRN (12:19)
--- NOTE | 2017-09-26 12:19 | Anesthesia Day of Surgery ---
Anesthesia Day of Surgery - Day of Surgery Patient Examined: Yes Patient H&P Reviewed: Yes Patient is NPO: Yes
[2017-09-26] MEDS: DOLOPHINE PO SCH (12:30)
[2017-09-26] MEDS: DILAUDID IV PRN ×3 (12:30→20:40)
[2017-09-26] MEDS ORDERED: PEPCID PO PRN (12:31)
[2017-09-26] MEDS ORDERED: VERSED ONE ×2 (12:48)
[2017-09-26] MEDS ORDERED: ceFAZolin 2 GM in NACL 0.9% 100 ML IV SCH (14:00)
--- NOTE | 2017-09-26 16:34 | XRay Report ---
XRAY LEFT KNEE 2 VIEWS: 09/26/17 06:39:00 CLINICAL: Patellar hardware removal and replacement. COMPARISON: 09/03/17 FINDINGS: Fixation wires in the patella have been replaced with 2 screws and wires. IMPRESSION: Status post patellar ORIF.
[2017-09-26] MEDS: ANCEF/STERILE WATER 2 GM/20 ML 2 GM/20 ML SYRINGE IV SCH (17:04)
[2017-09-26] MEDS: ASPIRIN PO SCH (21:42)
[2017-09-27] MEDS: ANCEF/STERILE WATER 2 GM/20 ML 2 GM/20 ML SYRINGE IV SCH ×2 (02:48→12:06)
[2017-09-27] MEDS: TORADOL IV SCH (05:56)
[2017-09-27] MEDS: DILAUDID IV PRN ×3 (07:51→18:03)
[2017-09-27] MEDS: DOLOPHINE PO SCH (09:21)
[2017-09-27] MEDS: ASPIRIN PO SCH (09:21)
--- NOTE | 2017-09-27 11:54 | Consultation ---
History of Present Illness - Reason for Consult Consult date: 09/27/17 Medical management - History of Present Illness Patient had surgery left patella. hospitalist consulted for medical management. Past History Past Medical History: other (Opiod dependence, onMrthadone) Past Surgical History: Other (left knee surgery) Social history: , lives with family, smoking (Smokes one and half pack cigarettes daily), alcohol abuse (6 beers on weekends) Family history: hypertension Medications and Allergies Allergies Allergy/AdvReac Type Severity Reaction Status Date / Time morphine Allergy Vomiting , Verified 06/05/17 14:48 RASH tramadol AdvReac NARCOTIC Verified 09/25/17 17:27 WITHDRAWAL Home Medications Medication Instructions Recorded Confirmed Last Taken Type Ibuprofen [Motrin] 800 mg PO Q8HR PRN 06/05/17 09/26/17 09/22/17 History Methadone [Dolophine] 30 mg PO DAILY 06/05/17 09/26/17 09/25/17 History Ranitidine HCl [Zantac 150 MG TAB] 150 mg PO PRN PRN 06/05/17 09/26/17 09/24/17 History HYDROcodone/APAP 5-325 [[place] 1 each PO Q6HR PRN 09/25/17 09/26/17 09/26/17 05: 00 History 5/325] Oxycodone HCl/Acetaminophen 1 each PO PRN PRN 09/25/17 09/26/17 4 Days Ago History [Endocet 7.5-325 mg Tablet] ~09/22/17 Active Meds: Active Medications Acetaminophen/Hydrocodone Bitart ([place] 10/325) 1 each PO Q4H PRN PRN Reason: Pain, Moderate (4-6) Aspirin (Aspirin) 325 mg PO BID [facility] Last Admin: 09/27/17 09:21 Dose: 325 mg Famotidine (Pepcid) 20 mg PO BID PRN PRN Reason: Indigestion Hydromorphone HCl (Dilaudid) 1 mg IV Q2H PRN PRN Reason: Pain , Severe (7-10) Last Admin: 09/27/17 11:19 Dose: 1 mg Lactated Ringer's (Lactated Ringers) 1,000 mls @ 100 mls/hr IV DIRECT [facility] Last Admin: 09/26/17 21:42 Dose: 100 mls/hr Magnesium Hydroxide (Milk Of Magnesia) 30 ml PO Q4H PRN PRN Reason: Constipation Methadone HCl (Dolophine) 30 mg PO DAILY [facility] Last Admin: 09/27/17 09:21 Dose: 30 mg Ondansetron HCl (Zofran) 4 mg IV Q8H PRN PRN Reason: Nausea And Vomiting Ondansetron HCl (Zofran) 4 mg IV ONCE PRN PRN Reason: Nausea And Vomiting Promethazine HCl (Phenergan) 25 mg [place] Q6H PRN PRN Reason: Nausea And Vomiting Exam - Constitutional Vitals: Temp Pulse Resp BP Pulse Ox 98.7 F 58 L 18 121/78 99 09/27/17 07:28 09/27/17 07:30 09/27/17 07:28 09/27/17 07:28 09/27/17 07:30 Results - Labs CBC & Chem 7: 09/25/17 11:00 09/25/17 11:00 Assessment and Plan Left knee surgery. Orthopedic surgeon managing Opioid dependence. On methadone. Continue meds
[2017-09-27] MEDS: LACTATED RINGERS 1,000 ML IV SCH (13:37)
--- NOTE | 2017-09-27 16:35 | Progress Note ---
Subjective Date of service: 09/27/17 Interval history: pod1, s/p orif patella, patient dressing dry, no complaints pain under control avss, nvi ankle movts and senstaiopns present knee immobiliser in place patient elecets to go home m, Objective Vital signs: Vital Signs - 12hr 09/27/17 09/27/17 09/27/17 07:28 07:30 11:46 Temperature 98.7 F 98.3 F Pulse Rate 58 L 77 Respiratory 18 18 Rate Blood Pressure 121/78 115/75 O2 Sat by Pulse 99 95 Oximetry - Labs CBC & BMP: 09/25/17 11:00 09/25/17 11:00
--- NOTE | 2017-09-27 16:38 | Short Stay Summary ---
Short Stay Documentation - History Past Medical History: other (Opiod dependence, onMrthadone) Past Surgical History: Other (left knee surgery) Social history: , lives with family, smoking (Smokes one and half pack cigarettes daily), alcohol abuse (6 beers on weekends) - Allergies and Medications Current Medications: Allergies morphine Allergy (Verified 06/05/17 14:48) Vomiting , RASH tramadol Adverse Reaction (Verified 09/25/17 17:27) NARCOTIC WITHDRAWAL PT STATES UNABLE TO TAKE BECAUSE IT CAUSES NAROTIC WITHDRAWAL-ON METHADONE Home Medications Medication Instructions Recorded Confirmed Last Taken Type Ibuprofen [Motrin] 800 mg PO Q8HR PRN 06/05/17 09/26/17 09/22/17 History Methadone [Dolophine] 30 mg PO DAILY 06/05/17 09/26/17 09/25/17 History Ranitidine HCl [Zantac 150 MG TAB] 150 mg PO PRN PRN 06/05/17 09/26/17 09/24/17 History HYDROcodone/APAP 5-325 [[place] 1 each PO Q6HR PRN 09/25/17 09/26/17 09/26/17 05: 00 History 5/325] Oxycodone HCl/Acetaminophen 1 each PO PRN PRN 09/25/17 09/26/17 4 Days Ago History [Endocet 7.5-325 mg Tablet] ~09/22/17 Active Medications Acetaminophen/Hydrocodone Bitart ([place] 10/325) 1 each PO Q4H PRN PRN Reason: Pain, Moderate (4-6) Aspirin (Aspirin) 325 mg PO BID [facility] Last Admin: 09/27/17 09:21 Dose: 325 mg Famotidine (Pepcid) 20 mg PO BID PRN PRN Reason: Indigestion Hydromorphone HCl (Dilaudid) 1 mg IV Q2H PRN PRN Reason: Pain , Severe (7-10) Last Admin: 09/27/17 11:19 Dose: 1 mg Lactated Ringer's (Lactated Ringers) 1,000 mls @ 100 mls/hr IV DIRECT [facility] Last Admin: 09/27/17 13:37 Dose: 100 mls/hr Magnesium Hydroxide (Milk Of Magnesia) 30 ml PO Q4H PRN PRN Reason: Constipation Methadone HCl (Dolophine) 30 mg PO DAILY [facility] Last Admin: 09/27/17 09:21 Dose: 30 mg Ondansetron HCl (Zofran) 4 mg IV Q8H PRN PRN Reason: Nausea And Vomiting Ondansetron HCl (Zofran) 4 mg IV ONCE PRN PRN Reason: Nausea And Vomiting Promethazine HCl (Phenergan) 25 mg [place] Q6H PRN PRN Reason: Nausea And Vomiting Short Stay Discharge Plan Activity: no driving until cleared by PCP, up only with assistance Weight Bearing Status: Weight Bear as Tolerated Diet: regular Wound: keep clean and dry, per your surgeon's advice, other Special Instructions: smoking cessation, physical therapy, occupational therapy Durable Medical Equipment Needed Upon Discharge: Crutches Additional Instructions: knee immobilizer at all time. home Nuring visit and home PT pt INSTRUCTIONS- wbat WITH 2 CRUTCHES AT ALL TIMES, kNEE IMMOBILIZER AT ALL TIMES, STOP SMOKING, FOLLOW UP IN 2 WEEKS. ASPRIN FOR dvt FOR 6 WEEKS. PATIENT STATED THAT [employer] PROVIDED IS NOT HELPING AND HE TOOK SOME OF IT AND NEEDS NEW MEDS REFILL AFTER SURGERY. HE HAS NO WAY TO GO TO HIS PAIN CLINIC. Follow up with: PRIMARY CARE [Primary Care Provider] - 7 Days
--- NOTE | 2017-09-27 16:39 | Short Stay Summary ---
Short Stay Documentation - History Past Medical History: other (Opiod dependence, onMrthadone) Past Surgical History: Other (left knee surgery) Social history: , lives with family, smoking (Smokes one and half pack cigarettes daily), alcohol abuse (6 beers on weekends) - Allergies and Medications Current Medications: Allergies morphine Allergy (Verified 06/05/17 14:48) Vomiting , RASH tramadol Adverse Reaction (Verified 09/25/17 17:27) NARCOTIC WITHDRAWAL PT STATES UNABLE TO TAKE BECAUSE IT CAUSES NAROTIC WITHDRAWAL-ON METHADONE Home Medications Medication Instructions Recorded Confirmed Last Taken Type Ibuprofen [Motrin] 800 mg PO Q8HR PRN 06/05/17 09/26/17 09/22/17 History Methadone [Dolophine] 30 mg PO DAILY 06/05/17 09/26/17 09/25/17 History Ranitidine HCl [Zantac 150 MG TAB] 150 mg PO PRN PRN 06/05/17 09/26/17 09/24/17 History HYDROcodone/APAP 5-325 [[place] 1 each PO Q6HR PRN 09/25/17 09/26/17 09/26/17 05: 00 History 5/325] Oxycodone HCl/Acetaminophen 1 each PO PRN PRN 09/25/17 09/26/17 4 Days Ago History [Endocet 7.5-325 mg Tablet] ~09/22/17 Active Medications Acetaminophen/Hydrocodone Bitart ([place] 10/325) 1 each PO Q4H PRN PRN Reason: Pain, Moderate (4-6) Aspirin (Aspirin) 325 mg PO BID [facility] Last Admin: 09/27/17 09:21 Dose: 325 mg Famotidine (Pepcid) 20 mg PO BID PRN PRN Reason: Indigestion Hydromorphone HCl (Dilaudid) 1 mg IV Q2H PRN PRN Reason: Pain , Severe (7-10) Last Admin: 09/27/17 11:19 Dose: 1 mg Lactated Ringer's (Lactated Ringers) 1,000 mls @ 100 mls/hr IV DIRECT [facility] Last Admin: 09/27/17 13:37 Dose: 100 mls/hr Magnesium Hydroxide (Milk Of Magnesia) 30 ml PO Q4H PRN PRN Reason: Constipation Methadone HCl (Dolophine) 30 mg PO DAILY [facility] Last Admin: 09/27/17 09:21 Dose: 30 mg Ondansetron HCl (Zofran) 4 mg IV Q8H PRN PRN Reason: Nausea And Vomiting Ondansetron HCl (Zofran) 4 mg IV ONCE PRN PRN Reason: Nausea And Vomiting Promethazine HCl (Phenergan) 25 mg [place] Q6H PRN PRN Reason: Nausea And Vomiting Short Stay Discharge Plan Additional Instructions: knee immobilizer at all time. home Nuring visit and home PT pt INSTRUCTIONS- wbat WITH 2 CRUTCHES AT ALL TIMES, kNEE IMMOBILIZER AT ALL TIMES, STOP SMOKING, FOLLOW UP IN 2 WEEKS. ASPRIN FOR dvt FOR 6 WEEKS. PATIENT STATED THAT [employer] PROVIDED IS NOT HELPING AND HE TOOK SOME OF IT AND NEEDS NEW MEDS REFILL AFTER SURGERY. HE HAS NO WAY TO GO TO HIS PAIN CLINIC. [facility] AND home PT and Nursing visits are arranged. Follow up with: PRIMARY CAREMD [Primary Care Provider] - 7 Days
[2017-09-27 17:58] VITALS: BP 124/78
== END 2017-09-27 18:25 | disposition home or self-care (01) ==
LOC: OR 06:39 → 3B-SURG 10:54
PROVIDERS: ADMIT Orthopaedic Surgery; ATTEND Orthopaedic Surgery
DX: S82.002A Unspecified fracture of left patella, initial encounter for closed fracture (principal); F17.210 Nicotine dependence, cigarettes, uncomplicated; X58.XXXA Exposure to other specified factors, initial encounter; Y92.89 Other specified places as the place of occurrence of the external cause; Y99.8 Other external cause status
CPT/HCPCS: 27524; 36415; 64448; 73560; 80053; 80307; 81001; 85025; 85610; 85730; 86850; 86900; 86901; 88302; 96374; 96375; 96376; 97116; 97162; C1713; G0378; J0690; J0735; J1100; J1170; J1885; J2250; J2370; J2405; J2704; J3010; J7120